=== PATIENT | male | born 1980 | race African-American/Black ===

== ENCOUNTER 2018-01-27 01:02 | Inpatient (IN) | payer BC, OTHER ==
[2018-01-27] MEDS ORDERED: SODIUM CHLORIDE 1,000 ML IV STA (01:22)
--- NOTE | 2018-01-27 01:30 | PDOC ---
Attending Attestation - HPI HPI: 01/27/18 03:23 Patient is a 37 year old male with a significant past medical history of Diabetes type 2, who presents to the ED with complaints of elevated blood sugar that began earlier this week. Patient reports elevated blood sugar since earlier this week but states he had it under control. He reports checking his blood sugar earlier today when the results showed it to be in the 400s, prompting him to come into the ED for further evaluation. Patient states he went off of his meds for a unknown amount of time. Denies chest pain, Sob. Denies nausea, vomiting. Denies contact with sick individuals, out of state travelling. Denies any other symptoms. Allergies: none Social history: No smoking. No alcohol. No illicit drugs. Surgical history: None PMD: None <Jose Peacock - Last Filed: 01/27/18 03:23> - Resident Resident Name: Roberto Louis - ED Attending Attestation I have performed the following: I have examined & evaluated the patient, The case was reviewed & discussed with the resident, I agree w/resident's findings & plan, Exceptions are as noted - Physicial Exam PE: 01/27/18 03:55 *Physical Exam General Appearance: Yes: Appropriately Dressed. No: Apparent Distress, Intoxicated HEENT: positive: EOMI, LASHAY, Normal ENT Inspection, Normal Voice, TMs Normal, Pharynx Normal. negative: Pale Conjunctivae, Photophobia, Scleral Icterus (R), Scleral Icterus (L) Neck: positive: Trachea midline, Normal Thyroid, Supple. negative: Tender, Rigid, Carotid bruit, Stridor, Lymphadenopathy (R), Lymphadenopathy (L), Thyromegaly Respiratory/Chest: positive: Lungs Clear, Normal Breath Sounds. negative: Chest Tender, Respiratory Distress, Accessory Muscle Use, Labored Respiration, RES, Crackles, Rales, Rhonchi, Stridor, Wheezing, Dullness Cardiovascular: positive: Regular Rhythm, Regular Rate, S1, S2. negative: Edema , JVD, Murmur, Bradycardia, Tachycardia Vascular Pulses: Dorsalis-Pedis (R): 2+, Doralis-Pedis (L): 2+ Gastrointestinal/Abdominal: positive: Normal Bowel Sounds, Flat, Soft. negative : Tender, Organomegaly, Pulsatile Mass, Increased Bowel Sounds, Decreased BS, Distended, Guarding, Rebound, Hernia, Hepatomegaly, Spleenomegaly Lymphatic: negative: Adenopathy, Tenderness Musculoskeletal: positive: Normal Inspection. negative: CVA Tenderness, Decreased Range of Motion Extremity: positive: Normal Capillary Refill, Normal Inspection, Normal Range of Motion, Pelvis Stable. negative: Tender, Pedal Edema, Swelling, Erythema Integumentary: positive: Normal Color, Dry, Warm. 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 negative: EOM Palsy, Facial Droop, Sensory Deficit - Medical Decision Making 01/27/18 03:55 Pt admitted to ICU for glucose control. Will be placed on Insulin drip. <Kofi Nichols - Last Filed: 01/27/18 03:56>
--- NOTE | 2018-01-27 01:48 | PDOC ---
History of Present Illness - General Chief Complaint: Blood Sugar Problem Stated Complaint: BLOOD SUGAR PROBLEM Time Seen by Provider: 01/27/18 01:12 History Source: Patient Exam Limitations: No Limitations - History of Present Illness Initial Comments: 01/27/18 01:44 Patient is a 37M with history of type 2 diabetes here today complaining of hyperglycemia. He states that his blood sugar was elevated to the 400s at home. He states that he used to take medication for his diabetes but stopped after his sugar became normal with diet and exercise. He currently does not have any PCP follow up. He used to take insulin and metformin for his diabetes. Denies nausea, vomiting, fevers, chills, cough, shortness of breath, chest pain. Endorses increased thirst and increased urination. Endorses decreased vision, saying that his vision is "off". Past History - Past Medical History Allergies/Adverse Reactions: Allergies Allergy/AdvReac Type Severity Reaction Status Date / Time No Known Allergies Allergy Verified 01/27/18 01:17 - Suicide/Smoking/Psychosocial Hx Smoking History: Never smoked Have you smoked in the past 12 months: No Information on smoking cessation initiated: No Hx Alcohol Use: No Drug/Substance Use Hx: No Review of Systems - Review of Systems Comments:: 01/27/18 01:46 GENERAL/CONSTITUTIONAL: No fever or chills. No weakness. HEAD, EYES, EARS, NOSE AND THROAT: Positive for changes in vision, decreased. No sore throat. CARDIOVASCULAR: No chest pain or shortness of breath RESPIRATORY: No cough, wheezing, or hemoptysis. GASTROINTESTINAL: No nausea, vomiting, diarrhea or constipation. GENITOURINARY: No dysuria. Positive for increased frequency. MUSCULOSKELETAL: No joint or muscle swelling or pain. No neck or back pain. SKIN: No rash NEUROLOGIC: Positive for headache. Negative for vertigo, loss of consciousness, or change in strength/sensation. ENDOCRINE: Positive fort increased thirst. No abnormal weight change HEMATOLOGIC/LYMPHATIC: No anemia, easy bleeding, or history of blood clots. ALLERGIC/IMMUNOLOGIC: No hives or skin allergy. *Physical Exam - Vital Signs Last Vital Signs Temp Pulse Resp BP Pulse Ox 97.6 F 63 20 138/75 99 01/27/18 01:17 01/27/18 01:17 01/27/18 01:17 01/27/18 01:17 01/27/18 01:17 - Physical Exam Comments: 01/27/18 01:47 GENERAL: Awake, alert, and fully oriented, in no acute distress HEAD: No signs of trauma, normocephalic, atraumatic EYES: PERRLA, EOMI, sclera anicteric, conjunctiva clear ENT: Auricles normal inspection, hearing grossly normal, nares patent, oropharynx clear without exudates. Moist mucosa NECK: Normal ROM, supple, no lymphadenopathy, JVD, or masses LUNGS: No distress, speaks full sentences, clear to auscultation bilaterally HEART: Regular rate and rhythm, normal S1 and S2, no murmurs, rubs or gallops, peripheral pulses normal and equal bilaterally. ABDOMEN: Soft, nontender, normoactive bowel sounds. No guarding, no rebound. No masses EXTREMITIES: Normal inspection, Normal range of motion, no edema. No clubbing or cyanosis. NEUROLOGICAL: Cranial nerves II through XII grossly intact. Normal speech, normal gait, no focal sensorimotor deficits SKIN: Warm, Dry, normal turgor, no rashes or lesions noted. ED Treatment Course - LABORATORY CBC & Chemistry Diagram: 01/27/18 02:00 01/27/18 02:00 Medical Decision Making - Medical Decision Making 01/27/18 01:47 Patient is 37M with history of diabetes here today complaining of hyperglycemia. Vital signs stable and normal. Will rule out DKA and UTI, treat with fluids, set up with PCP, likely discharge home. 01/27/18 03:01 Laboratory Tests 01/27/18 01/27/18 01/27/18 02:00 02:00 02:00 WBC 5.3 Hgb 13.9 Hct 41.8 Plt Count 227 Sodium 129 L Potassium 4.8 Chloride 93 L Anion Gap 10 Creatinine 1.4 H Random Glucose 763 H* Acetone, Qual Positive small 1+ CBC normal. CMP shows glucose of 763. Sodium corrects to 145. No gap. Acetone positive. VBG drawn and sent. Will give 10 U insulin IV, start on 0.1U/kg/hr insulin drip, and start on 250 mL /hr of 0.45NS+20meq K. 01/27/18 03:52 Approved for ICU care by Liz, admitted via Dr Hunter. *DC/Admit/Observation/Transfer Diagnosis at time of Disposition: Hyperglycemia - Discharge Dispostion Condition at time of disposition: Stable Admit: Yes - Referrals - Patient Instructions - Post Discharge Activity
[2018-01-27 02:18] LABS: BASO % 0.6 % (0-2.0); EOS % 1.3 % (0-4.5); HEMATOCRIT 41.8 % (35.4-49); HEMOGLOBIN 13.9 GM/dL (11.7-16.9); LYMPH % 32.7 % (8-40); MCH 29.4 pg (25.7-33.7); MCHC 33.4 g/dl (32.0-35.9); MEAN PLT VOLUME 10.2 fl (7.5-11.1); MONO % 7.4 % (3.8-10.2); PLATELET COUNT 227 K/MM3 (134-434); RBC 4.75 M/mm3 (4.00-5.60); RDW 13.8 % (11.9-15.9); WHITE BLOOD COUNT 5.3 K/mm3 (4.0-10.0)
[2018-01-27 02:19] LABS: URINE APPEARANCE CLEAR; URINE BILIRUBIN NEGATIVE (<2.0 mg/dL); URINE BLOOD NEGATIVE (NEGATIVE); URINE COLOR COLORLESS; URINE GLUCOSE (UA) 3+ (NEGATIVE); URINE KETONE TRACE (NEGATIVE); URINE LEUK ESTERASE NEGATIVE (NEGATIVE); URINE NITRITE NEGATIVE (NEGATIVE); URINE PROTEIN NEGATIVE (NEGATIVE); URINE UROBILINOGEN NEGATIVE mg/dL (0.2-1.0)
[2018-01-27 02:49] LABS: ALBUMIN 3.7 g/dl (3.4-5.0); ANION GAP 10 (8-16); BLOOD UREA NITROGEN 17 mg/dL (7-18); CALCIUM 8.9 mg/dL (8.5-10.1); CHLORIDE 93 mmol/L (98-107); CO2 26 mmol/L (21-32); CREATININE 1.4 mg/dL (0.7-1.3); POTASSIUM 4.8 mmol/L (3.5-5.1); SGOT/AST 9 U/L (15-37); SGPT/ALT 32 U/L (12-78); SODIUM 129 mmol/L (136-145)
[2018-01-27 02:52] LABS: ALK PHOS 121 U/L (45-117); BILIRUBIN,TOTAL 0.4 mg/dL (0.2-1.0); TOT PROT 7.2 g/dl (6.4-8.2)
[2018-01-27 02:57] LABS: GLUCOSE,RANDOM 763 mg/dL (74-106)
[2018-01-27] MEDS ORDERED: INSULIN REGULAR HUMAN 100 UNITS/ML *VIAL IVPUSH ONE (03:09)
[2018-01-27] MEDS ORDERED: INSULIN REGULAR 100 UNITS in SODIUM CHLORIDE 99 ML IVPB SCH (03:15)
[2018-01-27] MEDS ORDERED: SODIUM CHLORIDE 0.9%/KCL 20 MEQ/1,000 ML INFUS.BAG IV SCH (03:15)
[2018-01-27] MEDS ORDERED: INSULIN REGULAR HUMAN 100 UNITS/ML *VIAL ONE (03:30)
[2018-01-27 03:33] LABS: VENOUS PC02 40.8 mmHg (38-52); VENOUS PH 7.36 (7.32-7.42); VENOUS PO2 61.1 mmHg (28-48)
[2018-01-27] MEDS ORDERED: SODIUM CHLORIDE 0.45% 1,000 ML IV SCH ×2 (04:00→13:15)
--- NOTE | 2018-01-27 04:29 | HP ---
CHIEF COMPLAINT: high blood sugar PCP: none HISTORY OF PRESENT ILLNESS: 37 year old male with a hx of diabetes mellitus type II diagnosed 3 years ago presents to the hospital with polyuria, polydipsia, and elevated blood sugars measured at home. He states that when he was first diagnosed, his glucose was over 1000 and had to be hospitalized. He reports being given metformin to take as an outpatient, but he says that he stopped taking it in favor of diet and exercise, after which he states his sugars normalized and he lost 30 pounds. Patient recently changed jobs, working at night as a security operations specialist, and he says his regular routine has been prohibitive to diet and exercise. ER course was notable for: (1) serum glu 736 (2) Na 129 (3) PAST MEDICAL HISTORY: DMII Social History: Smokin/2 pack a day since he was 14 Alcohol: socially Drugs: social marijuana Allergies No Known Allergies Allergy (Verified 01/27/18 01:17) HOME MEDICATIONS: REVIEW OF SYSTEMS CONSTITUTIONAL: Absent: fever, chills, diaphoresis, generalized weakness, malaise, loss of appetite, weight change HEENT: Absent: rhinorrhea, nasal congestion, throat pain, throat swelling, difficulty swallowing, mouth swelling, ear pain, eye pain, visual changes CARDIOVASCULAR: Absent: chest pain, syncope, palpitations, irregular heart rate, lightheadedness , peripheral edema RESPIRATORY: Absent: cough, shortness of breath, dyspnea with exertion, orthopnea, wheezing, stridor, hemoptysis GASTROINTESTINAL: Absent: abdominal pain, abdominal distension, nausea, vomiting, diarrhea, constipation, melena, hematochezia GENITOURINARY: frequency Absent: dysuria, urgency, hesitancy, hematuria, flank pain, genital pain MUSCULOSKELETAL: Absent: myalgia, arthralgia, joint swelling, back pain, neck pain SKIN: Absent: rash, itching, pallor HEMATOLOGIC/IMMUNOLOGIC: Absent: easy bleeding, easy bruising, lymphadenopathy, frequent infections ENDOCRINE: Absent: unexplained weight gain, unexplained weight loss, heat intolerance, cold intolerance NEUROLOGIC: Absent: headache, focal weakness or paresthesias, dizziness, unsteady gait, seizure, mental status changes, bladder or bowel incontinence PSYCHIATRIC: Absent: anxiety, depression, suicidal or homicidal ideation, hallucinations. PHYSICAL EXAMINATION Vital Signs - 24 hr 01/27/18 01/27/18 01:17 01:22 Temperature 97.6 F Pulse Rate 63 Respiratory 20 Rate Blood Pressure 138/75 O2 Sat by Pulse 99 100 Oximetry (%) GENERAL: A&Ox3, no acute distress EYES: PERRLA, EOMI ENT: mucus membranes dry NECK: No JVD LUNGS: CTA, no wheezes HEART: RRR, no murmurs ABDOMEN: Soft, nontender, BS present MUSCULOSKELETAL: No CVA Tenderness EXTREMITIES: 2+ pulses, no edema. NEUROLOGICAL: Cranial nerves II-XII intact. Laboratory Results - last 24 hr 01/27/18 01/27/18 01/27/18 02:00 02:00 02:00 WBC 5.3 RBC 4.75 Hgb 13.9 Hct 41.8 MCV 88.0 MCH 29.4 MCHC 33.4 RDW 13.8 Plt Count 227 MPV 10.2 Neutrophils % 58.0 Lymphocytes % 32.7 Monocytes % 7.4 Eosinophils % 1.3 Basophils % 0.6 VBG pH POC VBG pCO2 POC VBG pO2 Mixed VBG HCO3 Sodium 129 L Potassium 4.8 Chloride 93 L Carbon Dioxide 26 Anion Gap 10 BUN 17 Creatinine 1.4 H Creat Clearance w eGFR 57.03 Random Glucose 763 H* Calcium 8.9 Total Bilirubin 0.4 AST 9 L ALT 32 Alkaline Phosphatase 121 H Total Protein 7.2 Albumin 3.7 Urine Color Colorless Urine Appearance Clear Urine pH 6.0 Ur Specific [place] 1.029 Urine Protein Negative Urine Glucose (UA) 3+ H Urine Ketones Trace H Urine Blood Negative Urine Nitrite Negative Urine Bilirubin Negative Urine Urobilinogen Negative Ur Leukocyte Esterase Negative Acetone, Qual 01/27/18 01/27/18 02:00 03:22 WBC RBC Hgb Hct MCV MCH MCHC RDW Plt Count MPV Neutrophils % Lymphocytes % Monocytes % Eosinophils % Basophils % VBG pH 7.36 POC VBG pCO2 40.8 POC VBG pO2 61.1 H Mixed VBG HCO3 22.6 Sodium Potassium Chloride Carbon Dioxide Anion Gap BUN Creatinine Creat Clearance w eGFR Random Glucose Calcium Total Bilirubin AST ALT Alkaline Phosphatase Total Protein Albumin Urine Color Urine Appearance Urine pH Ur Specific [place] Urine Protein Urine Glucose (UA) Urine Ketones Urine Blood Urine Nitrite Urine Bilirubin Urine Urobilinogen Ur Leukocyte Esterase Acetone, Qual Positive small 1+ ASSESSMENT/PLAN: 37 year old male with a hx of DMII presents with elevated blood sugar at 763 and admitted to ICU for treatment of HHS #Hyperosmolar Hyperglycemic State: patients sugar is 763, only sx are polyuria and polydipsia -ICU admission -BGMs Q1h -BMP Q2h, monitor anion gap, potassium, glucose -f/u serum osmoles -NPO until glucose level falls -IVF with 1/2 NS @ 125 cc/hr w/ 20mEq KCl -given 10U IV push insulin in ED -insulin drip @ 0.1u/kg/hr until sugar drops, then bridge to subq insulin -once plasma glucose reaches 250-300, can switch to dextrose and decrease insulin -A1C #Hyponatremia: corrected Na is 142 when accounting for glucose level -continue IVF w/ 1/2 NS 125 cc/hr w/ 20mEq KCl #Acute Kidney Injury: likely prerenal -continue hydration -urine lytes #FEN -NPO -hyponatremia is corrected to 142 from glucose -1/2 NS @ #Prophylaxis -heparin 5000 subq TID #Disposition -admit to ICU Visit type - Emergency Visit Emergency Visit: Yes ED Registration Date: 01/27/18 Care time: The patient presented to the Emergency Department on the above date and was hospitalized for further evaluation of their emergent condition. - New Patient This patient is new to me today: Yes Date on this admission: 01/27/18 - Critical Care Critical Care patient: Yes Total Critical Care Time (in minutes): 35 Critical Care Statement: The care of this patient involved high complexity decision making to prevent further life threatening deterioration of the patient 's condition and/or to evaluate & treat vital organ system(s) failure or risk of failure. Hospitalist Screening - Colonoscopy Questionnaire Colonoscopy Questionnaire: Colonoscopy Questionnaire - Patient: 50 - 75 years old and never had a screening colonoscopy: Unknown History of colon or rectal polyps, or CA: Unknown History of IBD, Crohn's disease or UC: Unknown History of abdominal radiation therapy as a child: Unknown - Relative: 1 with colon or rectal CA, or polyps at age 60 or younger: Unknown Colon or rectal CA diagnosed at age 45 or younger: Unknown Multiple relatives with colon or rectal CA: Unknown - Outcome: Screening Result: Negative Screen
[2018-01-27] MEDS ORDERED: SODIUM CHLORIDE 0.45%/POT 20 MEQ/1,000 ML INFUS.BAG IV SCH (05:00)
--- NOTE | 2018-01-27 05:51 | PN ---
Teaching Attending Note Name of Resident: Jose Vila ATTENDING PHYSICIAN STATEMENT I saw and evaluated the patient. Chart, data reviewed. I reviewed the resident's note and discussed the case with the resident. I agree with the resident's findings and plan as documented. SUBJECTIVE: 37 man with history of type 2 diabetes, obesity came to hospital after he was found to have hyperglycemia at home. About one year ago he stopped taking his metformin because he believed that his diabetes was well controlled with diet and exercise. He reports one episode of going to ER for hyperglycemia in the past. He denied any recent infections however admitted to some diarrhea. Here he received insulin IV push in ER and IV fluid hydration. OBJECTIVE: Last Vital Signs Temp Pulse Resp BP Pulse Ox 97.6 F 63 20 138/75 100 01/27/18 01:17 01/27/18 01:17 01/27/18 01:17 01/27/18 01:17 01/27/18 01:22 General- aaox3, nc, at heent -at, nc, dry oral mucosa neck -supple, no jvd cv - s1+s2+ RRR Chest- cta b/l abdomen -obese, soft, nt, no masses appreciated skin- dry, poor turgor Abnormal Lab Results 01/27/18 01/27/18 01/27/18 02:00 02:00 03:22 POC VBG pO2 61.1 H Sodium 129 L Chloride 93 L Creatinine 1.4 H Random Glucose 763 H* AST 9 L Alkaline Phosphatase 121 H Urine Glucose (UA) 3+ H Urine Ketones Trace H EKG - nsr ASSESSMENT AND PLAN: #37yo man with DM, noncompliant with medications presenting with hyperosmolar hyperosmotic state. Essential normal AG any only trace ketones in urine suggest against DKA. Clinically stable, however requires ICU admission for IV insulin. -admit to ICU -s/p insulin 10 units IV push -insulin drip 0.1 units/kg/hr and titrate according to FS -IV fluid hydration -NPO for now -mg, phos, supplement electrolytes prn -supplement potassium into IV fluids as drop in K is anticipated with IV insulin -medical educator #DVT ppx -heparin sc
[2018-01-27 05:57] LABS: ANION GAP 8 (8-16); BLOOD UREA NITROGEN 14 mg/dL (7-18); CALCIUM 8.9 mg/dL (8.5-10.1); CHLORIDE 102 mmol/L (98-107); CO2 25 mmol/L (21-32); CREATININE 1.1 mg/dL (0.7-1.3); SODIUM 135 mmol/L (136-145)
[2018-01-27 06:04] LABS: GLUCOSE,RANDOM 462 mg/dL (74-106)
[2018-01-27 06:15] LABS: OSMOLALITY,SERUM 305 mosm/kg (278-305)
[2018-01-27 06:59] VITALS: BMI 29.2
[2018-01-27] MEDS ORDERED: INSULIN DETEMIR 100 UNITS/ML MDV SQ ONE (09:15)
[2018-01-27 09:58] LABS: HEMATOCRIT 42.5 % (35.4-49); HEMOGLOBIN 14.2 GM/dL (11.7-16.9); MCHC 33.4 g/dl (32.0-35.9); MEAN CELL VOLUME 86.8 fl (80-96); MEAN PLT VOLUME 9.3 fl (7.5-11.1); PLATELET COUNT 227 K/MM3 (134-434); RDW 13.3 % (11.9-15.9); WHITE BLOOD COUNT 6.2 K/mm3 (4.0-10.0)
[2018-01-27] MEDS ORDERED: MUPIROCIN 2% TOPICAL OINTMENT FOR DECOLONIZATION NS SCH (10:00)
[2018-01-27] MEDS: HEPARIN NA (PORCINE) 5,000 UNITS/ML 1ML VIAL SQ SCH ×3 (10:07→22:10)
--- NOTE | 2018-01-27 10:09 | EKG ---
Test Reason : Blood Pressure : / mmHG Vent. Rate : 060 BPM Atrial Rate : 060 BPM P-R Int : 156 ms QRS Dur : 090 ms QT Int : 408 ms P-R-T Axes : 051 038 034 degrees QTc Int : 408 ms NORMAL SINUS RHYTHM EARLY REPOLARIZATION NORMAL ECG NO PREVIOUS ECGS AVAILABLE Confirmed by UZMA GARCIA, BILLY ([id number]) on 01/27/2018 10:08:51 AM Referred By: Confirmed By:BILLY GUSMAN MD
[2018-01-27 10:36] LABS: ANION GAP 6 (8-16); BLOOD UREA NITROGEN 12 mg/dL (7-18); CALCIUM 8.8 mg/dL (8.5-10.1); CHLORIDE 105 mmol/L (98-107); CO2 28 mmol/L (21-32); CREATININE 0.9 mg/dL (0.7-1.3); GLUCOSE,RANDOM 180 mg/dL (74-106); MAGNESIUM 2.3 mg/dL (1.8-2.4); SODIUM 139 mmol/L (136-145)
--- NOTE | 2018-01-27 11:56 | PN ---
Teaching Attending Note Name of Resident: John Garcia ATTENDING PHYSICIAN STATEMENT I saw and evaluated the patient. I reviewed the resident's note and discussed the case with the resident. I agree with the resident's findings and plan as documented. SUBJECTIVE: Patient seen and examined in the ICU. Awake and alert. Currently off IV Insulin. AG remains closed. No CP or SOB. Intake & Output 01/24/18 01/25/18 01/26/18 01/27/18 23:59 23:59 23:59 23:59 Intake Total 1999 Balance 1999 Weight 197 lb 9.6 oz Last Vital Signs Temp Pulse Resp BP Pulse Ox 98.4 F 67 20 124/73 97 01/27/18 10:00 01/27/18 10:00 01/27/18 10:00 01/27/18 10:00 01/27/18 08:15 Active Medications Chlorhexidine Gluconate (Hibiclens For Decolonization -) 1 applic TP HS [facility] Heparin Sodium (Porcine) (Heparin -) 5,000 unit SQ Q8H-IV [facility] Last Admin: 01/27/18 10:07 Dose: 5,000 unit Potassium Chloride/Sodium Chloride (Ns+20 Meq Kcl -) 20 meq in 1,000 mls @ 250 mls/hr IV ASDIR [facility] Last Admin: 01/27/18 03:38 Dose: 250 mls/hr Insulin Aspart (Novolog Vial Sliding Scale -) 1 vial SQ ACHS [facility] PRN Reason: Protocol Mupirocin (Bactroban Ointment (For Decolonization) -) 1 applic NS BID [facility] Stop: 02/01/18 09:59 Last Admin: 01/27/18 10:07 Dose: 1 applic GENERAL: Awake, alert, and fully oriented, in no acute distress HEAD: No signs of trauma, normocephalic, atraumatic EYES: PERRLA, EOMI, sclera anicteric, conjunctiva clear ENT: Auricles normal inspection, hearing grossly normal, nares patent, oropharynx clear without exudates. Moist mucosa NECK: Normal ROM, supple, no lymphadenopathy, JVD, or masses LUNGS: clear to auscultation bilaterally HEART: Regular rate and rhythm, normal S1 and S2 ABDOMEN: Soft, nontender, normoactive bowel sounds. No guarding, no rebound. No masses EXTREMITIES: No clubbing or cyanosis. NEUROLOGICAL: Non-focal SKIN: Warm, Dry, normal turgor, no rashes or lesions noted. Laboratory Results - last 24 hr 01/27/18 01/27/18 01/27/18 02:00 02:00 02:00 WBC 5.3 RBC 4.75 Hgb 13.9 Hct 41.8 MCV 88.0 MCH 29.4 MCHC 33.4 RDW 13.8 Plt Count 227 MPV 10.2 Neutrophils % 58.0 Lymphocytes % 32.7 Monocytes % 7.4 Eosinophils % 1.3 Basophils % 0.6 VBG pH POC VBG pCO2 POC VBG pO2 Mixed VBG HCO3 Sodium 129 L Potassium 4.8 Chloride 93 L Carbon Dioxide 26 Anion Gap 10 BUN 17 Creatinine 1.4 H Creat Clearance w eGFR 57.03 POC Glucometer Random Glucose 763 H* Hemoglobin A1c % Serum Osmolality Calcium 8.9 Magnesium Total Bilirubin 0.4 AST 9 L ALT 32 Alkaline Phosphatase 121 H Total Protein 7.2 Albumin 3.7 Urine Color Colorless Urine Appearance Clear Urine pH 6.[address] [place] 1.029 Urine Protein Negative Urine Glucose (UA) 3+ H Urine Ketones Trace H Urine Blood Negative Urine Nitrite Negative Urine Bilirubin Negative Urine Urobilinogen Negative Ur Leukocyte Esterase Negative Ur Random Sodium Urine Creatinine Acetone, Qual 01/27/18 01/27/18 01/27/18 02:00 02:00 03:22 WBC RBC Hgb Hct MCV MCH MCHC RDW Plt Count MPV Neutrophils % Lymphocytes % Monocytes % Eosinophils % Basophils % VBG pH 7.36 POC VBG pCO2 40.8 POC VBG pO2 61.1 H Mixed VBG HCO3 22.6 Sodium Potassium Chloride Carbon Dioxide Anion Gap BUN Creatinine Creat Clearance w eGFR POC Glucometer Random Glucose Hemoglobin A1c % 11.8 H Serum Osmolality Calcium Magnesium Total Bilirubin AST ALT Alkaline Phosphatase Total Protein Albumin Urine Color Urine Appearance Urine pH Ur Specific [place] Urine Protein Urine Glucose (UA) Urine Ketones Urine Blood Urine Nitrite Urine Bilirubin Urine Urobilinogen Ur Leukocyte Esterase Ur Random Sodium Urine Creatinine Acetone, Qual Positive small 1+ 01/27/18 01/27/18 01/27/18 05:08 05:33 05:33 WBC RBC Hgb Hct MCV MCH MCHC RDW Plt Count MPV Neutrophils % Lymphocytes % Monocytes % Eosinophils % Basophils % VBG pH POC VBG pCO2 POC VBG pO2 Mixed VBG HCO3 Sodium 135 L Potassium Chloride 102 Carbon Dioxide 25 Anion Gap 8 BUN 14 Creatinine 1.1 D Creat Clearance w eGFR POC Glucometer Random Glucose 462 H* D Hemoglobin A1c % Serum Osmolality 305 Calcium 8.9 Magnesium Total Bilirubin AST ALT Alkaline Phosphatase Total Protein Albumin Urine Color Urine Appearance Urine pH Ur Specific [place] Urine Protein Urine Glucose (UA) Urine Ketones Urine Blood Urine Nitrite Urine Bilirubin Urine Urobilinogen Ur Leukocyte Esterase Ur Random Sodium 56 Urine Creatinine 43.5 Acetone, Qual 01/27/18 01/27/18 01/27/18 07:07 08:05 09:00 WBC 6.2 RBC 4.90 Hgb 14.2 Hct 42.5 MCV 86.8 MCH 29.0 MCHC 33.4 RDW 13.3 Plt Count 227 MPV 9.3 Neutrophils % Lymphocytes % Monocytes % Eosinophils % Basophils % VBG pH POC VBG pCO2 POC VBG pO2 Mixed VBG HCO3 Sodium Potassium Chloride Carbon Dioxide Anion Gap BUN Creatinine Creat Clearance w eGFR POC Glucometer [phone] Random Glucose Hemoglobin A1c % Serum Osmolality Calcium Magnesium Total Bilirubin AST ALT Alkaline Phosphatase Total Protein Albumin Urine Color Urine Appearance Urine pH Ur Specific [place] Urine Protein Urine Glucose (UA) Urine Ketones Urine Blood Urine Nitrite Urine Bilirubin Urine Urobilinogen Ur Leukocyte Esterase Ur Random Sodium Urine Creatinine Acetone, Qual 01/27/18 01/27/18 09:11 09:14 WBC RBC Hgb Hct MCV MCH MCHC RDW Plt Count MPV Neutrophils % Lymphocytes % Monocytes % Eosinophils % Basophils % VBG pH POC VBG pCO2 POC VBG pO2 Mixed VBG HCO3 Sodium 139 Potassium 4.0 Chloride 105 Carbon Dioxide 28 Anion Gap 6 L BUN 12 Creatinine 0.9 Creat Clearance w eGFR POC Glucometer 181.07130 Random Glucose 180 H D Hemoglobin A1c % Serum Osmolality Calcium 8.8 Magnesium 2.3 Total Bilirubin AST ALT Alkaline Phosphatase Total Protein Albumin Urine Color Urine Appearance Urine pH Ur Specific [place] Urine Protein Urine Glucose (UA) Urine Ketones Urine Blood Urine Nitrite Urine Bilirubin Urine Urobilinogen Ur Leukocyte Esterase Ur Random Sodium Urine Creatinine Acetone, Qual IMP: Hyperglycemia Hyponatremia Non-compliance PLAN: Transition to SQ insulin O2 as needed PO as tolerated I&O Check Lipid panel Floor Dr Gerardo Critical care time spent in reviewing chart, evaluating patient and formulating plan - 36 minutes.
[2018-01-27] MEDS: INSULIN SLIDING SCALE (NOVOLOG) 1 VIAL SQ SCH ×3 (12:22→22:09)
--- NOTE | 2018-01-27 13:36 | CONSULT ---
Consultation: REQUESTING PROVIDER: CONSULT REQUEST: We have been asked to medically evaluate this patient for hyperglycemia. HISTORY OF PRESENT ILLNESS: Mr. Santoro is a 37 yo male w/ pmh of DMII who reported to ER complaining of home blood sugars in the 400's as well as vision changes he reports as making him dizzy. He reports that previously he has had to take metformin and insulin for his diabetes, but that he has been able to control his levels with diet and exercise. He also reports that he does not currently have a PCP. In the ER Mr. Santoro was found to have a glucose of 763 with a corrected sodium of 145. Serum acetone was trace positive 1+ with trace urine ketones. Mr. Santoro was started on a 0.1 units / kg / hr insulin drip with 250 ml/hr of 0.45 NS + 20meq K. Transferred to ICU. In the ICU patient's glucose was noted to be 462 this AM. REVIEW OF SYSTEMS: CONSTITUTIONAL: Absent: fever, chills, diaphoresis, generalized weakness, malaise, loss of appetite, weight change HEENT: +Vision changes Mr. Santoro has difficulty describing Absent: rhinorrhea, nasal congestion, throat pain, throat swelling, difficulty swallowing, mouth swelling, ear pain, eye pain CARDIOVASCULAR: Absent: chest pain, syncope, palpitations, irregular heart rate, lightheadedness , peripheral edema RESPIRATORY: Absent: cough, shortness of breath, dyspnea with exertion, orthopnea, wheezing, stridor, hemoptysis GASTROINTESTINAL: Absent: abdominal pain, abdominal distension, nausea, vomiting, diarrhea, constipation, melena, hematochezia GENITOURINARY: Absent: dysuria, frequency, urgency, hesitancy, hematuria, flank pain, genital pain MUSCULOSKELETAL: Absent: myalgia, arthralgia, joint swelling, back pain, neck pain SKIN: Absent: rash, itching, pallor HEMATOLOGIC/IMMUNOLOGIC: Absent: easy bleeding, easy bruising, lymphadenopathy, frequent infections ENDOCRINE: Absent: unexplained weight gain, unexplained weight loss, heat intolerance, cold intolerance NEUROLOGIC: +Dizziness with vision as described. Absent: headache, focal weakness or paresthesias, unsteady gait, seizure, mental status changes, bladder or bowel incontinence PSYCHIATRIC: Absent: anxiety, depression, suicidal or homicidal ideation, hallucinations. PHYSICAL EXAMINATION Vital Signs - 24 hr 01/27/18 01/27/18 01/27/18 01:17 01:22 05:55 Temperature 97.6 F 98.1 F Pulse Rate 63 Pulse Rate [ 58 L Right] Respiratory 20 18 Rate Blood Pressure 138/75 Blood Pressure 132/81 [Right Arm] O2 Sat by Pulse 99 100 97 Oximetry (%) 01/27/18 01/27/18 01/27/18 06:39 06:58 08:00 Temperature 98.1 F 97.2 F L Pulse Rate 64 63 75 Pulse Rate [ Right] Respiratory 18 18 22 Rate Blood Pressure 142/77 142/77 104/55 Blood Pressure [Right Arm] O2 Sat by Pulse 97 Oximetry (%) 01/27/18 01/27/18 08:15 10:00 Temperature 98.4 F Pulse Rate 67 Pulse Rate [ Right] Respiratory 18 20 Rate Blood Pressure 124/73 Blood Pressure [Right Arm] O2 Sat by Pulse 97 Oximetry (%) GENERAL: Awake, alert, and fully oriented, in no acute distress. HEAD: Normal with no signs of trauma. EYES: Vision changes now resolved. Pupils equal, round and reactive to light, extraocular movements intact, sclera anicteric, conjunctiva clear. No lid lag. EARS, NOSE, THROAT: Ears normal, nares patent, oropharynx clear without exudates. Moist mucous membranes. NECK: Normal range of motion, supple without lymphadenopathy, JVD, or masses. LUNGS: Breath sounds equal, clear to auscultation bilaterally. No wheezes, and no crackles. No accessory muscle use. HEART: Regular rate and rhythm, normal S1 and S2 without murmur, rub or gallop. ABDOMEN: Soft, nontender, not distended, normoactive bowel sounds, no guarding, no rebound, no masses. No hepatomegaly or splenomegaly. MUSCULOSKELETAL: Normal range of motion at all joints. No bony deformities or tenderness. No CVA tenderness. UPPER EXTREMITIES: 2+ pulses, warm, well-perfused. No cyanosis. No clubbing. Cap refill <2 seconds. No peripheral edema. LOWER EXTREMITIES: 2+ pulses, warm, well-perfused. No calf tenderness. No peripheral edema. NEUROLOGICAL: Cranial nerves II-XII intact. Normal speech. Normal gait. PSYCHIATRIC: Cooperative. Good eye contact. Appropriate mood and affect. SKIN: Warm, dry, normal turgor, no rashes or lesions noted. Laboratory Results - last 24 hr 01/27/18 01/27/18 01/27/18 02:00 02:00 02:00 WBC 5.3 RBC 4.75 Hgb 13.9 Hct 41.8 MCV 88.0 MCH 29.4 MCHC 33.4 RDW 13.8 Plt Count 227 MPV 10.2 Neutrophils % 58.0 Lymphocytes % 32.7 Monocytes % 7.4 Eosinophils % 1.3 Basophils % 0.6 VBG pH POC VBG pCO2 POC VBG pO2 Mixed VBG HCO3 Sodium 129 L Potassium 4.8 Chloride 93 L Carbon Dioxide 26 Anion Gap 10 BUN 17 Creatinine 1.4 H Creat Clearance w eGFR 57.03 POC Glucometer Random Glucose 763 H* Hemoglobin A1c % Serum Osmolality Calcium 8.9 Magnesium Total Bilirubin 0.4 AST 9 L ALT 32 Alkaline Phosphatase 121 H Total Protein 7.2 Albumin 3.7 Urine Color Colorless Urine Appearance Clear Urine pH 6.0 Ur Specific [place] 1.029 Urine Protein Negative Urine Glucose (UA) 3+ H Urine Ketones Trace H Urine Blood Negative Urine Nitrite Negative Urine Bilirubin Negative Urine Urobilinogen Negative Ur Leukocyte Esterase Negative Ur Random Sodium Urine Creatinine Acetone, Qual 01/27/18 01/27/18 01/27/18 02:00 02:00 03:22 WBC RBC Hgb Hct MCV MCH MCHC RDW Plt Count MPV Neutrophils % Lymphocytes % Monocytes % Eosinophils % Basophils % VBG pH 7.36 POC VBG pCO2 40.8 POC VBG pO2 61.1 H Mixed VBG HCO3 22.6 Sodium Potassium Chloride Carbon Dioxide Anion Gap BUN Creatinine Creat Clearance w eGFR POC Glucometer Random Glucose Hemoglobin A1c % 11.8 H Serum Osmolality Calcium Magnesium Total Bilirubin AST ALT Alkaline Phosphatase Total Protein Albumin Urine Color Urine Appearance Urine pH Ur Specific [place] Urine Protein Urine Glucose (UA) Urine Ketones Urine Blood Urine Nitrite Urine Bilirubin Urine Urobilinogen Ur Leukocyte Esterase Ur Random Sodium Urine Creatinine Acetone, Qual Positive small 1+ 01/27/18 01/27/18 01/27/18 04:39 05:08 05:33 WBC RBC Hgb Hct MCV MCH MCHC RDW Plt Count MPV Neutrophils % Lymphocytes % Monocytes % Eosinophils % Basophils % VBG pH POC VBG pCO2 POC VBG pO2 Mixed VBG HCO3 Sodium 135 L Potassium Chloride 102 Carbon Dioxide 25 Anion Gap 8 BUN 14 Creatinine 1.1 D Creat Clearance w eGFR POC Glucometer > 400 Random Glucose 462 H* D Hemoglobin A1c % Serum Osmolality 305 Calcium 8.9 Magnesium Total Bilirubin AST ALT Alkaline Phosphatase Total Protein Albumin Urine Color Urine Appearance Urine pH Ur Specific [place] Urine Protein Urine Glucose (UA) Urine Ketones Urine Blood Urine Nitrite Urine Bilirubin Urine Urobilinogen Ur Leukocyte Esterase Ur Random Sodium 56 Urine Creatinine Acetone, Qual 01/27/18 01/27/18 01/27/18 05:33 07:07 08:05 WBC RBC Hgb Hct MCV MCH MCHC RDW Plt Count MPV Neutrophils % Lymphocytes % Monocytes % Eosinophils % Basophils % VBG pH POC VBG pCO2 POC VBG pO2 Mixed VBG HCO3 Sodium Potassium Chloride Carbon Dioxide Anion Gap BUN Creatinine Creat Clearance w eGFR POC Glucometer [phone] Random Glucose Hemoglobin A1c % Serum Osmolality Calcium Magnesium Total Bilirubin AST ALT Alkaline Phosphatase Total Protein Albumin Urine Color Urine Appearance Urine pH Ur Specific [place] Urine Protein Urine Glucose (UA) Urine Ketones Urine Blood Urine Nitrite Urine Bilirubin Urine Urobilinogen Ur Leukocyte Esterase Ur Random Sodium Urine Creatinine 43.5 Acetone, Qual 01/27/18 01/27/18 01/27/18 09:00 09:00 09:11 WBC 6.2 RBC 4.90 Hgb 14.2 Hct 42.5 MCV 86.8 MCH 29.0 MCHC 33.4 RDW 13.3 Plt Count 227 MPV 9.3 Neutrophils % Lymphocytes % Monocytes % Eosinophils % Basophils % VBG pH POC VBG pCO2 POC VBG pO2 Mixed VBG HCO3 Sodium 139 Potassium Cancelled 4.0 Chloride 105 Carbon Dioxide 28 Anion Gap 6 L BUN 12 Creatinine 0.9 Creat Clearance w eGFR POC Glucometer Random Glucose 180 H D Hemoglobin A1c % Serum Osmolality Calcium 8.8 Magnesium 2.3 Total Bilirubin AST ALT Alkaline Phosphatase Total Protein Albumin Urine Color Urine Appearance Urine pH Ur Specific [place] Urine Protein Urine Glucose (UA) Urine Ketones Urine Blood Urine Nitrite Urine Bilirubin Urine Urobilinogen Ur Leukocyte Esterase Ur Random Sodium Urine Creatinine Acetone, Qual 01/27/18 01/27/18 09:14 12:03 WBC RBC Hgb Hct MCV MCH MCHC RDW Plt Count MPV Neutrophils % Lymphocytes % Monocytes % Eosinophils % Basophils % VBG pH POC VBG pCO2 POC VBG pO2 Mixed VBG HCO3 Sodium Potassium Chloride Carbon Dioxide Anion Gap BUN Creatinine Creat Clearance w eGFR POC Glucometer [phone] Random Glucose Hemoglobin A1c % Serum Osmolality Calcium Magnesium Total Bilirubin AST ALT Alkaline Phosphatase Total Protein Albumin Urine Color Urine Appearance Urine pH Ur Specific [place] Urine Protein Urine Glucose (UA) Urine Ketones Urine Blood Urine Nitrite Urine Bilirubin Urine Urobilinogen Ur Leukocyte Esterase Ur Random Sodium Urine Creatinine Acetone, Qual Active Medications Generic Name Dose Route Start Last Admin Trade Name Tracy PRN Reason Stop Dose Admin Chlorhexidine Gluconate 1 applic 01/27/18 22:00 Hibiclens For Decolonization - TP HS HENRIQUE Heparin Sodium (Porcine) 5,000 unit 01/27/18 10:00 01/27/18 10:07 Heparin - SQ 5,000 unit [id number] HENRIQUE Administration Sodium Chloride 1,000 mls @ 125 mls/hr 01/27/18 13:15 1/2 Normal Saline IV ASDIR HENRIQUE Insulin Aspart 1 vial 01/27/18 11:00 01/27/18 12:22 Novolog Vial Sliding Scale - SQ 10 units ACHS HENRIQUE Administration Protocol Mupirocin 1 applic 01/27/18 10:00 01/27/18 10:07 Bactroban Ointment (For Decolonization) - NS 02/01/18 09:59 1 applic BID HENRIQUE Administration ASSESSMENT/PLAN: Mr. Santoro is a 37 yo male w/ pmh of DMII who presented with Hyperglycemia and non-specific vision abnormalities now resolved. Insulin drip d/c'ed with glucose to 180. Levemir with ISS started and patient placed on normal diet. Hyperglycemia - Sugar down to 180 - ISS - Levemir - Diabetic Diet Hyponatremia - Sodium 135 - Normal diet resumed PPX - SQH FEN - 1/2 NS @ 125 cc/hr - Replete electrolytes PRN - Diabetic Diet Dispo: Transfer to med/surg for further evaluation. Visit type - Emergency Visit Emergency Visit: Yes ED Registration Date: 01/27/18 Care time: The patient presented to the Emergency Department on the above date and was hospitalized for further evaluation of their emergent condition. - New Patient This patient is new to me today: Yes Date on this admission: 01/30/18 - Critical Care Critical Care patient: Yes Total Critical Care Time (in minutes): 35 Critical Care Statement: The care of this patient involved high complexity decision making to prevent further life threatening deterioration of the patient 's condition and/or to evaluate & treat vital organ system(s) failure or risk of failure.
--- NOTE | 2018-01-27 13:42 | MSN ---
Progress Note (short form) - Note Progress Note: SUBJECTIVE: Patient seen and examined at bedside this morning. He has no complaints other than stating that he is hungry. He states he is starting to feel stronger and no longer has the whole body sensation that he gets when his blood glucose is elevated. He continues to have polydypsia and polyuria. He also reports intermittent tingling in his left lower extremity that is not occurring at this time. He denies chest pain, SOB, changes in vision, or abdominal pain. OBJECTIVE: Vital Signs Period Temp Pulse Resp BP Sys/[place] Pulse Ox Last 24 Hr 97.2 F-98.4 F 58-75 18-22 104-142/55-81 97-100 PHYSICAL EXAM: GENERAL: Well-appearing man lying in bed comfortably watching TV, awake, alert and orientated HEAD: Normocephalic, atraumatic EYES: Extraocular muscles intact, pupils equal round and reactive to light MOUTH: Moist mucous membranes, no oral lesions NECK: Supple without lymphadenopathy CARDIOVASCULAR: No JVD, regular at 60 bpm normal S1/S2 without murmur, rubs, or gallop LUNGS: Clear to auscultation b/l, no wheezes or crackles ABDOMEN: Soft, non-tender, no rebound or guarding EXTREMITIES: 2 + pulses b/l UE/LE, sensation grossly intact NEURO: Cranial Nerves II-XII grossly intact, fluent speech, gait not observed TESTS: CXR: Reviewed with no evidence of acute pathology EKG: Reviewed, demonstrates sinus rhythm with early repolarization Laboratory Results - last 24 hr 01/27/18 01/27/18 01/27/18 02:00 02:00 02:00 WBC 5.3 RBC 4.75 Hgb 13.9 Hct 41.8 MCV 88.0 MCH 29.4 MCHC 33.4 RDW 13.8 Plt Count 227 MPV 10.2 Neutrophils % 58.0 Lymphocytes % 32.7 Monocytes % 7.4 Eosinophils % 1.3 Basophils % 0.6 VBG pH POC VBG pCO2 POC VBG pO2 Mixed VBG HCO3 Sodium 129 L Potassium 4.8 Chloride 93 L Carbon Dioxide 26 Anion Gap 10 BUN 17 Creatinine 1.4 H Creat Clearance w eGFR 57.03 POC Glucometer Random Glucose 763 H* Hemoglobin A1c % Serum Osmolality Calcium 8.9 Magnesium Total Bilirubin 0.4 AST 9 L ALT 32 Alkaline Phosphatase 121 H Total Protein 7.2 Albumin 3.7 Urine Color Colorless Urine Appearance Clear Urine pH 6.0 Ur Specific [place] 1.029 Urine Protein Negative Urine Glucose (UA) 3+ H Urine Ketones Trace H Urine Blood Negative Urine Nitrite Negative Urine Bilirubin Negative Urine Urobilinogen Negative Ur Leukocyte Esterase Negative Ur Random Sodium Urine Creatinine Acetone, Qual 01/27/18 01/27/18 01/27/18 02:00 02:00 03:22 WBC RBC Hgb Hct MCV MCH MCHC RDW Plt Count MPV Neutrophils % Lymphocytes % Monocytes % Eosinophils % Basophils % VBG pH 7.36 POC VBG pCO2 40.8 POC VBG pO2 61.1 H Mixed VBG HCO3 22.6 Sodium Potassium Chloride Carbon Dioxide Anion Gap BUN Creatinine Creat Clearance w eGFR POC Glucometer Random Glucose Hemoglobin A1c % 11.8 H Serum Osmolality Calcium Magnesium Total Bilirubin AST ALT Alkaline Phosphatase Total Protein Albumin Urine Color Urine Appearance Urine pH Ur Specific [place] Urine Protein Urine Glucose (UA) Urine Ketones Urine Blood Urine Nitrite Urine Bilirubin Urine Urobilinogen Ur Leukocyte Esterase Ur Random Sodium Urine Creatinine Acetone, Qual Positive small 1+ 01/27/18 01/27/18 01/27/18 04:39 05:08 05:33 WBC RBC Hgb Hct MCV MCH MCHC RDW Plt Count MPV Neutrophils % Lymphocytes % Monocytes % Eosinophils % Basophils % VBG pH POC VBG pCO2 POC VBG pO2 Mixed VBG HCO3 Sodium 135 L Potassium Chloride 102 Carbon Dioxide 25 Anion Gap 8 BUN 14 Creatinine 1.1 D Creat Clearance w eGFR POC Glucometer > 400 Random Glucose 462 H* D Hemoglobin A1c % Serum Osmolality 305 Calcium 8.9 Magnesium Total Bilirubin AST ALT Alkaline Phosphatase Total Protein Albumin Urine Color Urine Appearance Urine pH Ur Specific [place] Urine Protein Urine Glucose (UA) Urine Ketones Urine Blood Urine Nitrite Urine Bilirubin Urine Urobilinogen Ur Leukocyte Esterase Ur Random Sodium 56 Urine Creatinine Acetone, Qual 01/27/18 01/27/18 01/27/18 05:33 07:07 08:05 WBC RBC Hgb Hct MCV MCH MCHC RDW Plt Count MPV Neutrophils % Lymphocytes % Monocytes % Eosinophils % Basophils % VBG pH POC VBG pCO2 POC VBG pO2 Mixed VBG HCO3 Sodium Potassium Chloride Carbon Dioxide Anion Gap BUN Creatinine Creat Clearance w eGFR POC Glucometer [phone] Random Glucose Hemoglobin A1c % Serum Osmolality Calcium Magnesium Total Bilirubin AST ALT Alkaline Phosphatase Total Protein Albumin Urine Color Urine Appearance Urine pH Ur Specific [place] Urine Protein Urine Glucose (UA) Urine Ketones Urine Blood Urine Nitrite Urine Bilirubin Urine Urobilinogen Ur Leukocyte Esterase Ur Random Sodium Urine Creatinine 43.5 Acetone, Qual 01/27/18 01/27/18 01/27/18 09:00 09:00 09:11 WBC 6.2 RBC 4.90 Hgb 14.2 Hct 42.5 MCV 86.8 MCH 29.0 MCHC 33.4 RDW 13.3 Plt Count 227 MPV 9.3 Neutrophils % Lymphocytes % Monocytes % Eosinophils % Basophils % VBG pH POC VBG pCO2 POC VBG pO2 Mixed VBG HCO3 Sodium 139 Potassium Cancelled 4.0 Chloride 105 Carbon Dioxide 28 Anion Gap 6 L BUN 12 Creatinine 0.9 Creat Clearance w eGFR POC Glucometer Random Glucose 180 H D Hemoglobin A1c % Serum Osmolality Calcium 8.8 Magnesium 2.3 Total Bilirubin AST ALT Alkaline Phosphatase Total Protein Albumin Urine Color Urine Appearance Urine pH Ur Specific [place] Urine Protein Urine Glucose (UA) Urine Ketones Urine Blood Urine Nitrite Urine Bilirubin Urine Urobilinogen Ur Leukocyte Esterase Ur Random Sodium Urine Creatinine Acetone, Qual 01/27/18 01/27/18 09:14 12:03 WBC RBC Hgb Hct MCV MCH MCHC RDW Plt Count MPV Neutrophils % Lymphocytes % Monocytes % Eosinophils % Basophils % VBG pH POC VBG pCO2 POC VBG pO2 Mixed VBG HCO3 Sodium Potassium Chloride Carbon Dioxide Anion Gap BUN Creatinine Creat Clearance w eGFR POC Glucometer 181.75988 400.81851 Random Glucose Hemoglobin A1c % Serum Osmolality Calcium Magnesium Total Bilirubin AST ALT Alkaline Phosphatase Total Protein Albumin Urine Color Urine Appearance Urine pH Ur Specific [place] Urine Protein Urine Glucose (UA) Urine Ketones Urine Blood Urine Nitrite Urine Bilirubin Urine Urobilinogen Ur Leukocyte Esterase Ur Random Sodium Urine Creatinine Acetone, Qual ASSESSMENT/PLAN: 37 yr old male with history of diabetes mellitus diagnosed 3 yrs ago (initially controlled with insulin and metformin but for past year patient attempting to control with diet and exercise alone) presented to the ED with polyuria, polydypsia, and several days of elevated home glucometer blood glucose readings ranging about 300 mg/dL and was found to have a serum glucose of 763. He was admitted for the management of hyperosmolar hyperglycemic state. #Hyperosmolar Hyperglycemic State -Monitoring BG Q1H and BMP Q2H -Insulin drip at 0.1 U/kg/hr until blood glucose 250 mg/dL then transition to Levemir 10 U with a Novolog sliding scale -No anion gap on admission -HbA1c ordered -Refer to local shredder/granulator operator for patient to follow as outpatient; Patient is hesitant to use insulin again but understands that given his recent change in lifestyle (eating more carbohydrates and more sedentary) it will be necessary to use insulin #Hyponatremia -Corrected Na+ for blood glucose is within normal limits #Acute kidney injury -On admission creatinine of 1.4 trending down to 1.1; possibly pre-renal cause; monitor creatinine as patient is hydrated #FEN -NS at 125 cc/hr with 20 Doe KCl #DVT prophylaxis -Heparin 5000U SQ TID #Dispo -Transfer from ICU -Determine insulin dose until patient is able to follow-up with endocrinology as an outpatient
--- NOTE | 2018-01-27 14:32 | PN ---
Physical Exam: SUBJECTIVE: Patient seen and examined No acute events overnight. Patient feels better. Sugar is better controlled OBJECTIVE: Vital Signs Period Temp Pulse Resp BP Sys/Caballreo Pulse Ox Last 24 Hr 97.2 F-98.4 F 58-75 18-22 104-142/55-81 97-100 GENERAL: The patient is awake, alert, and fully oriented, in no acute distress. HEAD: Normal with no signs of trauma. EYES: PERRL, extraocular movements intact, sclera anicteric, conjunctiva clear. No ptosis. ENT: Oropharynx clear without exudates, moist mucous membranes. NECK: Trachea midline, full range of motion, supple. LUNGS: Breath sounds equal, clear to auscultation bilaterally, no wheezes, no crackles, no accessory muscle use. HEART: Regular rate and rhythm, S1, S2 without murmur, rub or gallop. ABDOMEN: Soft, nontender, nondistended, normoactive bowel sounds, no guarding, no rebound, no hepatosplenomegaly, no masses. EXTREMITIES: 2+ pulses, warm, well-perfused, no edema. NEUROLOGICAL: Cranial nerves II through XII grossly intact. Normal speech, gait not observed. PSYCH: Normal mood, normal affect. SKIN: Warm, dry, normal turgor, no rashes or lesions noted Laboratory Results - last 24 hr 01/27/18 01/27/18 01/27/18 02:00 02:00 02:00 WBC 5.3 RBC 4.75 Hgb 13.9 Hct 41.8 MCV 88.0 MCH 29.4 MCHC 33.4 RDW 13.8 Plt Count 227 MPV 10.2 Neutrophils % 58.0 Lymphocytes % 32.7 Monocytes % 7.4 Eosinophils % 1.3 Basophils % 0.6 VBG pH POC VBG pCO2 POC VBG pO2 Mixed VBG HCO3 Sodium 129 L Potassium 4.8 Chloride 93 L Carbon Dioxide 26 Anion Gap 10 BUN 17 Creatinine 1.4 H Creat Clearance w eGFR 57.03 POC Glucometer Random Glucose 763 H* Hemoglobin A1c % Serum Osmolality Calcium 8.9 Magnesium Total Bilirubin 0.4 AST 9 L ALT 32 Alkaline Phosphatase 121 H Total Protein 7.2 Albumin 3.7 Urine Color Colorless Urine Appearance Clear Urine pH 6.0 Ur Specific [place] 1.029 Urine Protein Negative Urine Glucose (UA) 3+ H Urine Ketones Trace H Urine Blood Negative Urine Nitrite Negative Urine Bilirubin Negative Urine Urobilinogen Negative Ur Leukocyte Esterase Negative Ur Random Sodium Urine Creatinine Acetone, Qual 01/27/18 01/27/18 01/27/18 02:00 02:00 03:22 WBC RBC Hgb Hct MCV MCH MCHC RDW Plt Count MPV Neutrophils % Lymphocytes % Monocytes % Eosinophils % Basophils % VBG pH 7.36 POC VBG pCO2 40.8 POC VBG pO2 61.1 H Mixed VBG HCO3 22.6 Sodium Potassium Chloride Carbon Dioxide Anion Gap BUN Creatinine Creat Clearance w eGFR POC Glucometer Random Glucose Hemoglobin A1c % 11.8 H Serum Osmolality Calcium Magnesium Total Bilirubin AST ALT Alkaline Phosphatase Total Protein Albumin Urine Color Urine Appearance Urine pH Ur Specific [place] Urine Protein Urine Glucose (UA) Urine Ketones Urine Blood Urine Nitrite Urine Bilirubin Urine Urobilinogen Ur Leukocyte Esterase Ur Random Sodium Urine Creatinine Acetone, Qual Positive small 1+ 01/27/18 01/27/18 01/27/18 04:39 05:08 05:33 WBC RBC Hgb Hct MCV MCH MCHC RDW Plt Count MPV Neutrophils % Lymphocytes % Monocytes % Eosinophils % Basophils % VBG pH POC VBG pCO2 POC VBG pO2 Mixed VBG HCO3 Sodium 135 L Potassium Chloride 102 Carbon Dioxide 25 Anion Gap 8 BUN 14 Creatinine 1.1 D Creat Clearance w eGFR POC Glucometer > 400 Random Glucose 462 H* D Hemoglobin A1c % Serum Osmolality 305 Calcium 8.9 Magnesium Total Bilirubin AST ALT Alkaline Phosphatase Total Protein Albumin Urine Color Urine Appearance Urine pH Ur Specific [place] Urine Protein Urine Glucose (UA) Urine Ketones Urine Blood Urine Nitrite Urine Bilirubin Urine Urobilinogen Ur Leukocyte Esterase Ur Random Sodium 56 Urine Creatinine Acetone, Qual 01/27/18 01/27/18 01/27/18 05:33 07:07 08:05 WBC RBC Hgb Hct MCV MCH MCHC RDW Plt Count MPV Neutrophils % Lymphocytes % Monocytes % Eosinophils % Basophils % VBG pH POC VBG pCO2 POC VBG pO2 Mixed VBG HCO3 Sodium Potassium Chloride Carbon Dioxide Anion Gap BUN Creatinine Creat Clearance w eGFR POC Glucometer [phone] Random Glucose Hemoglobin A1c % Serum Osmolality Calcium Magnesium Total Bilirubin AST ALT Alkaline Phosphatase Total Protein Albumin Urine Color Urine Appearance Urine pH Ur Specific [place] Urine Protein Urine Glucose (UA) Urine Ketones Urine Blood Urine Nitrite Urine Bilirubin Urine Urobilinogen Ur Leukocyte Esterase Ur Random Sodium Urine Creatinine 43.5 Acetone, Qual 01/27/18 01/27/18 01/27/18 09:00 09:00 09:11 WBC 6.2 RBC 4.90 Hgb 14.2 Hct 42.5 MCV 86.8 MCH 29.0 MCHC 33.4 RDW 13.3 Plt Count 227 MPV 9.3 Neutrophils % Lymphocytes % Monocytes % Eosinophils % Basophils % VBG pH POC VBG pCO2 POC VBG pO2 Mixed VBG HCO3 Sodium 139 Potassium Cancelled 4.0 Chloride 105 Carbon Dioxide 28 Anion Gap 6 L BUN 12 Creatinine 0.9 Creat Clearance w eGFR POC Glucometer Random Glucose 180 H D Hemoglobin A1c % Serum Osmolality Calcium 8.8 Magnesium 2.3 Total Bilirubin AST ALT Alkaline Phosphatase Total Protein Albumin Urine Color Urine Appearance Urine pH Ur Specific [place] Urine Protein Urine Glucose (UA) Urine Ketones Urine Blood Urine Nitrite Urine Bilirubin Urine Urobilinogen Ur Leukocyte Esterase Ur Random Sodium Urine Creatinine Acetone, Qual 01/27/18 01/27/18 09:14 12:03 WBC RBC Hgb Hct MCV MCH MCHC RDW Plt Count MPV Neutrophils % Lymphocytes % Monocytes % Eosinophils % Basophils % VBG pH POC VBG pCO2 POC VBG pO2 Mixed VBG HCO3 Sodium Potassium Chloride Carbon Dioxide Anion Gap BUN Creatinine Creat Clearance w eGFR POC Glucometer 181.20318 400.72746 Random Glucose Hemoglobin A1c % Serum Osmolality Calcium Magnesium Total Bilirubin AST ALT Alkaline Phosphatase Total Protein Albumin Urine Color Urine Appearance Urine pH Ur Specific [place] Urine Protein Urine Glucose (UA) Urine Ketones Urine Blood Urine Nitrite Urine Bilirubin Urine Urobilinogen Ur Leukocyte Esterase Ur Random Sodium Urine Creatinine Acetone, Qual Active Medications Generic Name Dose Route Start Last Admin Trade Name Sanketq PRN Reason Stop Dose Admin Chlorhexidine Gluconate 1 applic 01/27/18 22:00 Hibiclens For Decolonization - TP HS HENRIQUE Heparin Sodium (Porcine) 5,000 unit 01/27/18 10:00 01/27/18 10:07 Heparin - SQ 5,000 unit Q8H-IV HENRIQUE Administration Sodium Chloride 1,000 mls @ 125 mls/hr 01/27/18 13:15 01/27/18 13:44 1/2 Normal Saline IV 125 mls/hr ASDIR HENRIQUE Administration Insulin Aspart 1 vial 01/27/18 11:00 01/27/18 12:22 Novolog Vial Sliding Scale - SQ 10 units ACHS HENRIQUE Administration Protocol Mupirocin 1 applic 01/27/18 10:00 01/27/18 10:07 Bactroban Ointment (For Decolonization) - NS 02/01/18 09:59 1 applic BID HENRIQUE Administration ASSESSMENT/PLAN: 37 year old male with a hx of DMII presents with elevated blood sugar at 763 and admitted to ICU for treatment of HHS #Hyperosmolar Hyperglycemic State: -BGMs Q1h -Diabetic diet -NS @ 125 cc/hr -Insulin drip stopped -ISS, will monitor insulin requriements -a1c- 11.8 #Acute Kidney Injury: likely prerenal -continue hydration -monitor cr -monitor urine output #FEN -Diabetic diet -monitor lytes -NS @ 125 cc/hr #Prophylaxis -heparin 5000 subq Q8h #Disposition -will determine insulin requirement and dc with endocrine f/u Visit type - Emergency Visit Emergency Visit: Yes ED Registration Date: 01/27/18 Care time: The patient presented to the Emergency Department on the above date and was hospitalized for further evaluation of their emergent condition. - New Patient This patient is new to me today: Yes Date on this admission: 01/27/18 - Critical Care Critical Care patient: Yes Total Critical Care Time (in minutes): 40 Critical Care Statement: The care of this patient involved high complexity decision making to prevent further life threatening deterioration of the patient 's condition and/or to evaluate & treat vital organ system(s) failure or risk of failure.
--- NOTE | 2018-01-27 17:20 | PN ---
Teaching Attending Note Name of Resident: Amor Hanna ATTENDING PHYSICIAN STATEMENT I saw and evaluated the patient. I reviewed the resident's note and discussed the case with the resident. I agree with the resident's findings and plan as documented. SUBJECTIVE: Patient has no complaints. OBJECTIVE: Vital Signs Period Temp Pulse Resp BP Sys/Caballero Pulse Ox Last 24 Hr 97.2 F-98.6 F 58-75 18-22 104-142/55-81 97-100 HEART: S1S2, RRR LUNGS: Clear ABDOMEN: Soft, non-tender, non-distended, normal BS EXTREMITIES: No edema Laboratory Results - last 24 hr 01/27/18 01/27/18 01/27/18 02:00 02:00 02:00 WBC 5.3 RBC 4.75 Hgb 13.9 Hct 41.8 MCV 88.0 MCH 29.4 MCHC 33.4 RDW 13.8 Plt Count 227 MPV 10.2 Neutrophils % 58.0 Lymphocytes % 32.7 Monocytes % 7.4 Eosinophils % 1.3 Basophils % 0.6 VBG pH POC VBG pCO2 POC VBG pO2 Mixed VBG HCO3 Sodium 129 L Potassium 4.8 Chloride 93 L Carbon Dioxide 26 Anion Gap 10 BUN 17 Creatinine 1.4 H Creat Clearance w eGFR 57.03 POC Glucometer Random Glucose 763 H* Hemoglobin A1c % Serum Osmolality Calcium 8.9 Magnesium Total Bilirubin 0.4 AST 9 L ALT 32 Alkaline Phosphatase 121 H Total Protein 7.2 Albumin 3.7 Urine Color Colorless Urine Appearance Clear Urine pH 6.0 Ur Specific [place] 1.029 Urine Protein Negative Urine Glucose (UA) 3+ H Urine Ketones Trace H Urine Blood Negative Urine Nitrite Negative Urine Bilirubin Negative Urine Urobilinogen Negative Ur Leukocyte Esterase Negative Ur Random Sodium Urine Creatinine Acetone, Qual 01/27/18 01/27/18 01/27/18 02:00 02:00 03:22 WBC RBC Hgb Hct MCV MCH MCHC RDW Plt Count MPV Neutrophils % Lymphocytes % Monocytes % Eosinophils % Basophils % VBG pH 7.36 POC VBG pCO2 40.8 POC VBG pO2 61.1 H Mixed VBG HCO3 22.6 Sodium Potassium Chloride Carbon Dioxide Anion Gap BUN Creatinine Creat Clearance w eGFR POC Glucometer Random Glucose Hemoglobin A1c % 11.8 H Serum Osmolality Calcium Magnesium Total Bilirubin AST ALT Alkaline Phosphatase Total Protein Albumin Urine Color Urine Appearance Urine pH Ur Specific [place] Urine Protein Urine Glucose (UA) Urine Ketones Urine Blood Urine Nitrite Urine Bilirubin Urine Urobilinogen Ur Leukocyte Esterase Ur Random Sodium Urine Creatinine Acetone, Qual Positive small 1+ 01/27/18 01/27/18 01/27/18 04:39 05:08 05:33 WBC RBC Hgb Hct MCV MCH MCHC RDW Plt Count MPV Neutrophils % Lymphocytes % Monocytes % Eosinophils % Basophils % VBG pH POC VBG pCO2 POC VBG pO2 Mixed VBG HCO3 Sodium 135 L Potassium Chloride 102 Carbon Dioxide 25 Anion Gap 8 BUN 14 Creatinine 1.1 D Creat Clearance w eGFR POC Glucometer > 400 Random Glucose 462 H* D Hemoglobin A1c % Serum Osmolality 305 Calcium 8.9 Magnesium Total Bilirubin AST ALT Alkaline Phosphatase Total Protein Albumin Urine Color Urine Appearance Urine pH Ur Specific [place] Urine Protein Urine Glucose (UA) Urine Ketones Urine Blood Urine Nitrite Urine Bilirubin Urine Urobilinogen Ur Leukocyte Esterase Ur Random Sodium 56 Urine Creatinine Acetone, Qual 01/27/18 01/27/18 01/27/18 05:33 07:07 08:05 WBC RBC Hgb Hct MCV MCH MCHC RDW Plt Count MPV Neutrophils % Lymphocytes % Monocytes % Eosinophils % Basophils % VBG pH POC VBG pCO2 POC VBG pO2 Mixed VBG HCO3 Sodium Potassium Chloride Carbon Dioxide Anion Gap BUN Creatinine Creat Clearance w eGFR POC Glucometer 312.26276 255.11909 Random Glucose Hemoglobin A1c % Serum Osmolality Calcium Magnesium Total Bilirubin AST ALT Alkaline Phosphatase Total Protein Albumin Urine Color Urine Appearance Urine pH Ur Specific [place] Urine Protein Urine Glucose (UA) Urine Ketones Urine Blood Urine Nitrite Urine Bilirubin Urine Urobilinogen Ur Leukocyte Esterase Ur Random Sodium Urine Creatinine 43.5 Acetone, Qual 01/27/18 01/27/18 01/27/18 09:00 09:00 09:11 WBC 6.2 RBC 4.90 Hgb 14.2 Hct 42.5 MCV 86.8 MCH 29.0 MCHC 33.4 RDW 13.3 Plt Count 227 MPV 9.3 Neutrophils % Lymphocytes % Monocytes % Eosinophils % Basophils % VBG pH POC VBG pCO2 POC VBG pO2 Mixed VBG HCO3 Sodium 139 Potassium Cancelled 4.0 Chloride 105 Carbon Dioxide 28 Anion Gap 6 L BUN 12 Creatinine 0.9 Creat Clearance w eGFR POC Glucometer Random Glucose 180 H D Hemoglobin A1c % Serum Osmolality Calcium 8.8 Magnesium 2.3 Total Bilirubin AST ALT Alkaline Phosphatase Total Protein Albumin Urine Color Urine Appearance Urine pH Ur Specific [place] Urine Protein Urine Glucose (UA) Urine Ketones Urine Blood Urine Nitrite Urine Bilirubin Urine Urobilinogen Ur Leukocyte Esterase Ur Random Sodium Urine Creatinine Acetone, Qual 01/27/18 01/27/18 01/27/18 09:14 12:03 14:19 WBC RBC Hgb Hct MCV MCH MCHC RDW Plt Count MPV Neutrophils % Lymphocytes % Monocytes % Eosinophils % Basophils % VBG pH POC VBG pCO2 POC VBG pO2 Mixed VBG HCO3 Sodium Potassium Chloride Carbon Dioxide Anion Gap BUN Creatinine Creat Clearance w eGFR POC Glucometer 181.79282 400.97409 [phone] Random Glucose Hemoglobin A1c % Serum Osmolality Calcium Magnesium Total Bilirubin AST ALT Alkaline Phosphatase Total Protein Albumin Urine Color Urine Appearance Urine pH Ur Specific [place] Urine Protein Urine Glucose (UA) Urine Ketones Urine Blood Urine Nitrite Urine Bilirubin Urine Urobilinogen Ur Leukocyte Esterase Ur Random Sodium Urine Creatinine Acetone, Qual Current Medications Generic Name Dose Route Start Last Admin Trade Name Sanketq PRN Reason Stop Dose Admin Chlorhexidine Gluconate 1 applic 01/27/18 22:00 Hibiclens For Decolonization - TP HS HENRIQUE Heparin Sodium (Porcine) 5,000 unit 01/27/18 10:00 01/27/18 10:07 Heparin - SQ 5,000 unit Q8H-IV HENRIQUE Administration Sodium Chloride 1,000 mls @ 125 mls/hr 01/27/18 13:15 01/27/18 13:44 1/2 Normal Saline IV 125 mls/hr ASDIR HENRIQUE Administration Insulin Aspart 1 vial 01/27/18 11:00 01/27/18 12:22 Novolog Vial Sliding Scale - SQ 10 units ACHS HENRIQUE Administration Protocol Mupirocin 1 applic 01/27/18 10:00 01/27/18 10:07 Bactroban Ointment (For Decolonization) - NS 02/01/18 09:59 1 applic BID HENRIQUE Administration ASSESSMENT AND PLAN: This is a 37 year old man with a history of type 2 DM who presented to the ED with hyperglycemia. 1. Hyperosmolar hyperglycemic state - Improved - Insulin drip discontinued 2. Type 2 DM, uncontrolled - HgbA1c 11.8 - Levemir, Novolog sliding scale started - Discussed use of insulin at home after discharge - Diabetic education 3. Pseudohyponatremia secondary to hyperglycemia 4. Acute kidney injury secondary to dehydration - Resolved
[2018-01-27] MEDS: SODIUM CHLORIDE 0.45% 1,000 ML IV SCH (19:46)
[2018-01-27] MEDS ORDERED: CHLORHEXIDINE GLUCONATE 4% CLEANSER FOR DECOLONIZATION TP SCH (22:00)
[2018-01-28] MEDS: SODIUM CHLORIDE 0.45% 1,000 ML IV SCH (00:46)
[2018-01-28 03:07] VITALS: TEMP 97.9
[2018-01-28] MEDS: INSULIN SLIDING SCALE (NOVOLOG) 1 VIAL SQ SCH (06:42)
[2018-01-28] MEDS: HEPARIN NA (PORCINE) 5,000 UNITS/ML 1ML VIAL SQ SCH (06:43)
[2018-01-28] MEDS ORDERED: INSULIN (NOVOLOG) ASPART 100 UNITS/ML 10ML VIAL ONE (06:57)
[2018-01-28] MEDS ORDERED: INSULIN DETEMIR 100 UNITS/ML MDV SQ SCH (07:00)
[2018-01-28 07:50] LABS: ANION GAP 9 (8-16); BLOOD UREA NITROGEN 9 mg/dL (7-18); CALCIUM 8.1 mg/dL (8.5-10.1); CHLORIDE 102 mmol/L (98-107); CO2 25 mmol/L (21-32); CREATININE 0.8 mg/dL (0.7-1.3); GLUCOSE,RANDOM 284 mg/dL (74-106); POTASSIUM 3.9 mmol/L (3.5-5.1); SODIUM 136 mmol/L (136-145)
--- NOTE | 2018-01-28 10:23 | DS ---
Physical Exam: Selected Entries 01/27/18 01/28/18 21:00 06:00 Temperature 97.9 F Pulse Rate 67 Blood Pressure 128/76 O2 Sat by Pulse 97 Oximetry (%) Oxygen Delivery Room Air Method Laboratory Tests 01/27/18 01/27/18 01/27/18 02:00 02:00 05:08 WBC Hgb Hct Plt Count Sodium Potassium Chloride Carbon Dioxide Anion Gap BUN Creatinine 1.4 H 1.1 D Random Glucose 763 H* 462 H* D Hemoglobin A1c % 11.8 H 01/27/18 01/27/18 01/28/18 09:00 09:11 07:10 WBC 6.2 Hgb 14.2 Hct 42.5 Plt Count 227 Sodium 136 Potassium 3.9 Chloride 102 Carbon Dioxide 25 Anion Gap 9 BUN 9 D Creatinine 0.8 Random Glucose 180 H D 284 H D Hemoglobin A1c % CXR- No acute pathology EKG- NSR @ 60 bpm. HOSPITAL COURSE: Date of Admission:01/27/18 Date of Discharge: 01/28/18 37 year old male with a hx of diabetes mellitus type II diagnosed 3 years ago presented to the hospital with polyuria, polydipsia, and elevated blood sugars measured at home (763). Patient admitted to the ICU with HHS. Patient put on an insulin drip until sugars were better controlled. Patient started on levemir 10 units and a sliding scale. HBa1c came back at 11.8. Patient monitored overnight for insulin requirements. Patient will be d/c with 15 units of levemir hs and a sliding scale for novolog coverage. Pt will f/u in resident clinic with Dr. Denton and with endocrinology within 1 week. Minutes to complete discharge: 38 Discharge Summary Reason For Visit: HYPERGLYCEMIA Current Active Problems Hyperglycemia (Acute) Condition: Stable - Instructions Diet, Activity, Other Instructions: You were in the hospital due to an elevated blood sugar. Please follow up with a primary care provider. A referral has been provided for you. Please follow up with an salvage cutter within 1 week. A referral has been provided for you. Check your sugar 3 times per day before each meal and once at night. Start taking Insulin: -15 units of long acting insulin (Levemir) in the night -Take insulin novolog according to the following sliding scale before meals. Check your sugar, take your insulin, and then eat. 100-150: 0 UNITS 151-200: 2 UNITS 201-250: 4 UNITS 251-300: 6 UNITS 301-350: 8 UNITS 351-400: 10 UNITS >400: 12 UNITS Test your blood sugar as directed, write the results in a log book, and bring the log book with you to your medical appointments. Your blood sugar level is too low if it goes below 70 mg/dL. Take some juice, crackers, or cookies and call your doctor immediately. If your blood sugar is above 400, take your insulin novolog according to the sliding scale and call your doctor immediately. If you have chest pain, shortness of breath, or any new/worsening symptoms please come back to the hospital immediately. Referrals: Yariel Denton MD [Staff Physician] - 1 Week (Follow up in resident clinic) Bianca Pereyra MD [Staff Physician] - 1 Week Disposition: HOME - Home Medications Comprehensive Discharge Medication List: Ambulatory Orders Insulin Aspart [Novolog Flexpen] 100 unit SQ ACHS #1 insuln.pen 01/28/18 Insulin Detemir [Levemir Flextouch] 100 unit SQ HS #1 insuln.pen 01/28/18 Lancets/Blood Glucose Strips [Fora [id number] Strp-Lnct] 1 each ASDIR # 1 combo..pkg 01/28/18 Miscellaneous Medical Supply [Glucometer Device] 1 each .ROUTE ASDIR #1 kit 05/10 Miscellaneous Medical Supply [Glucometer Test Strips #100] 1 each .ROUTE ASDIR # 1 box 01/28/18 This patient is new to me today: No Emergency Visit: Yes ED Registration Date: 01/27/18 Care time: The patient presented to the Emergency Department on the above date and was hospitalized for further evaluation of their emergent condition. Critical Care patient: No - Discharge Referral Referred to [facility] Med P.[facility].: No
--- NOTE | 2018-01-28 10:49 | PN ---
Teaching Attending Note Name of Resident: Amor Hanna ATTENDING PHYSICIAN STATEMENT I saw and evaluated the patient. I reviewed the resident's note and discussed the case with the resident. I agree with the resident's findings and plan as documented. SUBJECTIVE: OBJECTIVE: Vital Signs Period Temp Pulse Resp BP Sys/Caballero Pulse Ox Last 24 Hr 97.9 F-98.6 F 59-75 20-20 104-129/61-81 97 Laboratory Results - last 24 hr 01/27/18 01/27/18 01/27/18 04:39 09:00 09:11 Sodium 139 Potassium Cancelled 4.0 Chloride 105 Carbon Dioxide 28 Anion Gap 6 L BUN 12 Creatinine 0.9 POC Glucometer > 400 Random Glucose 180 H D Calcium 8.8 Magnesium 2.3 01/27/18 01/27/18 01/27/18 12:03 14:19 17:04 Sodium Potassium Chloride Carbon Dioxide Anion Gap BUN Creatinine POC Glucometer 400.00885 382.02128 271.20777 Random Glucose Calcium Magnesium 01/27/18 01/28/18 01/28/18 20:58 06:01 07:10 Sodium 136 Potassium 3.9 Chloride 102 Carbon Dioxide 25 Anion Gap 9 BUN 9 D Creatinine 0.8 POC Glucometer 326 272 Random Glucose 284 H D Calcium 8.1 L Magnesium Current Medications Generic Name Dose Route Start Last Admin Trade Name Freq PRN Reason Stop Dose Admin Heparin Sodium (Porcine) 5,000 unit 01/27/18 22:00 01/28/18 06:43 Heparin - SQ 5,000 unit TID HENRIQUE Administration Sodium Chloride 1,000 mls @ 75 mls/hr 01/27/18 17:23 01/28/18 00:46 1/2 Normal Saline IV 75 mls/hr ASDIR HENRIQUE Administration Insulin Aspart 1 vial 01/27/18 22:00 01/28/18 06:42 Novolog Vial Sliding Scale - SQ 6 units ACHS HENRIQUE Administration Protocol Insulin Detemir 10 units 01/28/18 07:00 01/28/18 06:42 Levemir Vial SQ 10 units DAILY@0700 HENRIQUE Administration ASSESSMENT AND PLAN: This is a 37 year old man with a history of type 2 DM who presented to the ED with hyperglycemia. 1. Hyperosmolar hyperglycemic state - Resolved 2. Type 2 DM, uncontrolled - HgbA1c 11.8 - Increase Levemir and continue Novolog sliding scale 3. Pseudohyponatremia secondary to hyperglycemia 4. Acute kidney injury secondary to dehydration - Resolved 5. Discharge home with Levemir 15 units qhs, Novolog sliding scale ac, endocrine follow up
[2018-01-28 11:18] VITALS: BP 130/80; PULSE 70
== END 2018-01-28 11:25 | disposition home or self-care (01) | DRG 638 ==
LOC: JER 01:02 → JERBED 03:51 → JICU 06:51 → J5S 20:05
PROVIDERS: ADMIT Internal Medicine; ATTEND Internal Medicine
DX: E11.65 Type 2 diabetes mellitus with hyperglycemia (principal); E87.1 Hypo-osmolality and hyponatremia; N17.9 Acute kidney failure, unspecified; E86.0 Dehydration; Z91.14 Patient's other noncompliance with medication regimen
CPT/HCPCS: 36415; 71045-TC-FY; 80048; 80053; 81003; 82009; 82570; 82803; 82962; 83036; 83735; 83930; 84300; 85025; 85027; 93005; 93010; 99285-25; J1644; J7030

== ENCOUNTER 2023-11-22 21:33 | Emergency (ER) | payer BC ==
[2023-11-22 21:40] VITALS: BMI 26.6
[2023-11-22] MEDS ORDERED: ONDANSETRON 4 MG/2 ML VIAL IVPUSH ONE (22:03)
[2023-11-22] MEDS ORDERED: FAMOTIDINE 20 MG/50 ML IVPB 20 MG/50 ML MG IVPB ONE ×2 (22:03→22:11)
[2023-11-22] MEDS ORDERED: SODIUM CHLORIDE 1,000 ML IV STA ×2 (22:03→23:36)
[2023-11-22] MEDS ORDERED: ACETAMINOPHEN 1000 MG/100 ML BAG IVPB ONE (22:03)
[2023-11-22] MEDS ORDERED: ONDANSETRON 4 MG/2 ML VIAL ONE (22:10)
[2023-11-22] MEDS ORDERED: ACETAMINOPHEN INJECTION 100 ML IVPB ONE (22:10)
[2023-11-22 22:21] LABS: BASO % 0.8 % (0-2.0); EOS % 0.1 % (0-4.5); HEMATOCRIT 41.9 % (35.4-49); HEMOGLOBIN 14.1 GM/dL (11.7-16.9); LYMPH % 23.8 % (8-40); MCH 29.6 pg (25.7-33.7); MCHC 33.7 g/dl (32.0-35.9); MEAN CELL VOLUME 87.9 fl (80-96); MEAN PLT VOLUME 7.9 fl (7.5-11.1); MONO % 9.4 % (3.8-10.2); NEUT % 65.9 % (42.8-82.8); PLATELET COUNT 332 10^3/uL (134-434); RBC 4.77 M/mm3 (4.00-5.60); RDW 13.4 % (11.9-15.9)
[2023-11-22 22:35] LABS: VENOUS BASE EXCESS -3.6 mmol/L (-2-2); VENOUS O2 SATURATION 71.7 % (70-80); VENOUS PH 7.295 (7.310-7.410)
[2023-11-22 22:47] LABS: POTASSIUM 3.9 mmol/L (3.5-5.1)
[2023-11-22 22:49] LABS: CALCIUM 9.7 mg/dL (8.5-10.1)
[2023-11-22 22:50] LABS: ALBUMIN 3.8 g/dl (3.4-5.0)
[2023-11-22 22:53] LABS: CREATININE 0.9 mg/dL (0.55-1.3)
[2023-11-22 22:54] LABS: BILIRUBIN,TOTAL 1.1 mg/dL (0.2-1); TOT PROT 7.5 g/dl (6.4-8.2)
[2023-11-23 00:05] LABS: PH,URINE 6.5 (5.0-8.0); URINE APPEARANCE CLEAR; URINE BILIRUBIN NEGATIVE (NEGATIVE); URINE COLOR YELLOW; URINE GLUCOSE (UA) 3+ (NEGATIVE); URINE KETONE 3+ (NEGATIVE); URINE LEUK ESTERASE NEGATIVE (NEGATIVE); URINE NITRITE NEGATIVE (NEGATIVE); URINE PROTEIN TRACE (NEGATIVE)
[2023-11-23 03:07] LABS: VENOUS BASE EXCESS -0.8 mmol/L (-2-2); VENOUS O2 SATURATION 62.9 % (70-80); VENOUS PCO2 46.2 mmHg (38-52); VENOUS PH 7.353 (7.310-7.410)
[2023-11-23] MEDS ORDERED: ONDANSETRON *ODT* 4 MG TABLET SL ONE (05:56)
[2023-11-23] MEDS ORDERED: ONDANSETRON *ODT* 4 MG TABLET ONE (06:00)
[2023-11-23 11:31] VITALS: BP 153/74; PULSE 89; RESP 19; TEMP 99.3
== END 2023-11-23 11:40 | disposition home or self-care (01) ==
LOC: JER 21:33
PROC: 3E033GC Introduction of Other Therapeutic Substance into Peripheral Vein, Percutaneous Approach (ICD-10-PCS; principal; 2023-11-22)
PROC: 3E033GC Introduction of Other Therapeutic Substance into Peripheral Vein, Percutaneous Approach (ICD-10-PCS; 2023-11-22)
PROC: 3E033NZ Introduction of Analgesics, Hypnotics, Sedatives into Peripheral Vein, Percutaneous Approach (ICD-10-PCS; 2023-11-22)
PROC: 3E0337Z Introduction of Electrolytic and Water Balance Substance into Peripheral Vein, Percutaneous Approach (ICD-10-PCS; 2023-11-22)
DX: K29.70 Gastritis, unspecified, without bleeding (principal); R11.0 Nausea; R19.7 Diarrhea, unspecified; R53.83 Other fatigue; R09.81 Nasal congestion; R68.83 Chills (without fever); R05.9 Cough, unspecified; R00.0 Tachycardia, unspecified; I10 Essential (primary) hypertension; Z20.822 Contact with and (suspected) exposure to COVID-19
CPT/HCPCS: 0241U-QW; 36415; 74177-TC; 80053; 81003; 82010; 82803; 82962; 83690; 83735; 84484; 85025; 87077; 87086; 93005; 93010; 99285-25; J0131; Q0162; Q9967

== ENCOUNTER 2024-02-20 09:31 | Emergency (ER) | payer BC ==
[2024-02-20 09:38] VITALS: BP 130/86; PULSE 96; RESP 18; TEMP 98.3; BMI 23.4
== END 2024-02-20 13:31 | disposition home or self-care (01) ==
LOC: JER 09:31
DX: K59.00 Constipation, unspecified (principal)
CPT/HCPCS: 36415; 74018-TC-FY; 84484; 93005; 93010; 99285-25